=== PATIENT | female | born 1990 | race Two or more races ===

== ENCOUNTER 2024-04-13 08:09 | Outpatient (CLI) | payer OTHER ==
[~2024-04-13 08:09] MED LIST: CEPHALEXIN750 MG PO; FOLIC ACID0.8 M1; PEPCID40 MG PO; PRENA1 CHEW TA1.4 MG PO
== END 2024-04-13 08:10 | disposition home or self-care (01) ==
LOC: PRENATAL 08:09
PROVIDERS: ATTEND Obstetrics & Gynecology Maternal & Fetal Medicine
DX: O35.9XX0 Maternal care for (suspected) fetal abnormality and damage, unspecified, not applicable or unspecified (principal); O35.3XX0 Maternal care for (suspected) damage to fetus from viral disease in mother, not applicable or unspecified; O44.00 Complete placenta previa NOS or without hemorrhage, unspecified trimester; Z3A.20 20 weeks gestation of pregnancy

== ENCOUNTER 2024-06-07 08:38 | Outpatient (CLI) | payer OTHER | END 2024-06-07 08:41 | disposition home or self-care (01) | LOC: PRENATAL 08:38 | PROVIDERS: ATTEND Obstetrics & Gynecology Maternal & Fetal Medicine | DX: O26.843 Uterine size-date discrepancy, third trimester (principal); O28.3 Abnormal ultrasonic finding on antenatal screening of mother; Z3A.28 28 weeks gestation of pregnancy ==

== ENCOUNTER 2024-06-21 09:08 | Outpatient (CLI) | payer OTHER ==
[2024-06-26] MEDS ORDERED: INSULIN SYRING1 EA29 SUBCUTANEO (08:28)
[2024-06-26] MEDS ORDERED: HUMULIN N100 UNIT/2 SUBCUTANEO (08:28)
== END 2024-06-21 09:09 | disposition home or self-care (01) ==
LOC: PRENATAL 09:08
PROVIDERS: ATTEND Obstetrics & Gynecology Maternal & Fetal Medicine
DX: Z76.1 Encounter for health supervision and care of foundling (principal)

== ENCOUNTER 2024-07-19 09:08 | Outpatient (CLI) | payer OTHER ==
[~2024-07-19 09:08] MED LIST changes: +HUMULIN N100 UNIT/2 SUBCUTANEO; +INSULIN SYRING1 EA29 SUBCUTANEO
== END 2024-07-19 09:09 | disposition home or self-care (01) ==
LOC: PRENATAL 09:08
PROVIDERS: ATTEND Obstetrics & Gynecology Maternal & Fetal Medicine
DX: O26.849 Uterine size-date discrepancy, unspecified trimester (principal); O36.8199 Decreased fetal movements, unspecified trimester, other fetus; O24.419 Gestational diabetes mellitus in pregnancy, unspecified control; Z3A.34 34 weeks gestation of pregnancy

== ENCOUNTER 2024-08-15 07:13 | Inpatient (IN) | payer OTHER ==
[2024-08-11 12:25] LABS: HEMATOCRIT 35.8 % (36.0-45.00); HEMOGLOBIN 11.7 g/dL (12.0-15.00); MEAN CELL VOLUME 79.8 fL (80.00-100.00); MEAN CORPUSCULAR HGB CONC 32.5 g/dl (32.0-36.0); PLATELET COUNT 218 K/uL (150-450); RED BLOOD COUNT 4.49 M/uL (4.00-6.00); RED CELL DISTRIBUTION WIDTH 15.7 % (11.5-14.5)
[2024-08-11 12:25] LABS: URINE APPEARANCE Clear; URINE BILIRRUBIN Negative (NEGATIVE); URINE BLOOD Negative; URINE COLOR Dark Yellow; URINE GLUCOSE Negative (NEGATIVE); URINE LEUKOCYTE Small; URINE NITRATE Negative; URINE PROTEIN Trace (NEGATIVE)
[2024-08-11 12:31] LABS: URINE BACTERIA 1121.3 uL (0.0-1933); URINE EPITHELIAL CELLS 42.6 uL (0.0-38.8); URINE RBC 23.9 uL (0.0-20.8); URINE WBC 30.9 uL (0.0-23.2)
[2024-08-11 12:56] LABS: URINE KETONE 80 (NEGATIVE)
[2024-08-11 13:44] LABS: INR 0.96; PARTIAL THROMBOPLASTIN TIME 32.2 SECONDS (22.0-34.0); PROTHROMBIN TIME 10.5 SECONDS (9.0-11.5)
[~2024-08-15] VITALS: Ht 167.6 cm; Wt 2.7 kg
[2024-08-15 07:21] VITALS: BP 122/78
[2024-08-15] MEDS ORDERED: OXYTOCIN 10 UNITS/ML VIAL IV ONE (12:15)
[2024-08-15] MEDS ORDERED: ERYTHROMYCIN BASE OPHT 1GM EACH TUBE OP ONE (12:15)
[2024-08-15] MEDS ORDERED: PROMETHAZINE HCL 50 MG/ML AMPUL IM PRN (14:15)
[2024-08-15] MEDS ORDERED: MEPERIDINE HCL/PF 50 MG/ML VIAL IM PRN (14:15)
[2024-08-15] MEDS ORDERED: MORPHINE SULFATE 4 MG/ML VIAL IV ONE (15:40)
[2024-08-15 19:34] VITALS: BP 115/73
[2024-08-15 22:24] LABS: HEMATOCRIT 27.7 % (36.0-45.00); HEMOGLOBIN 9.1 g/dL (12.0-15.00); MEAN CELL VOLUME 79.1 fL (80.00-100.00); MEAN CORPUSCULAR HGB CONC 32.9 g/dl (32.0-36.0); PLATELET COUNT 172 K/uL (150-450); RED CELL DISTRIBUTION WIDTH 15.6 % (11.5-14.5)
[2024-08-16] VITALS: BP 118/75
[2024-08-16] MEDS ORDERED: OxyCODONE HCL/APAP UD (PERCOCET) PO PRN (08:00)
[2024-08-16 08:10] VITALS: BP 111/68
[2024-08-16] MEDS ORDERED: SIMETHICONE 125 MG CAPSULE PO SCH (09:00)
[2024-08-16] MEDS ORDERED: PNV,CALCIUM 72/IRON/FOLIC ACID 1 TAB TABLET PO SCH (09:00)
[2024-08-16] MEDS ORDERED: DOCUSATE SODIUM 100MG CAP PO SCH (09:00)
[2024-08-16 16:00] VITALS: BP 106/68
[2024-08-17] VITALS: BP 115/75
[2024-08-17 09:24] VITALS: BP 108/68
[2024-08-17 16:18] VITALS: BP 110/63
[2024-08-18 01:14] VITALS: BP 100/61
[2024-08-18 08:43] VITALS: BP 103/68
== END 2024-08-18 17:30 | disposition home or self-care (01) | DRG 788 ==
LOC: O/R 07:13 → OB/GYN 10:39
PROVIDERS: ADMIT Obstetrics & Gynecology; ATTEND Obstetrics & Gynecology
PROC: 4A1HXCZ Monitoring of Products of Conception, Cardiac Rate, External Approach (ICD-10-PCS; 2024-08-15)
PROC: 10D00Z1 Extraction of Products of Conception, Low, Open Approach (ICD-10-PCS; principal; 2024-08-15 11:45)
DX: O82 Encounter for cesarean delivery without indication (principal); O24.420 Gestational diabetes mellitus in childbirth, diet controlled; Z3A.38 38 weeks gestation of pregnancy; Z37.0 Single live birth; Z20.822 Contact with and (suspected) exposure to COVID-19